=== PATIENT | female | born 1960 | race Native Hawaiian/Other Pacific Islander ===

== ENCOUNTER 2019-05-24 10:09 | Day surgery (SDC) | payer OTHER | END 2019-05-24 13:48 | disposition home or self-care (01) | LOC: OR 10:09 | PROC: 3E0R33Z Introduction of Anti-inflammatory into Spinal Canal, Percutaneous Approach (ICD-10-PCS; principal; 2019-05-24) | PROC: B01BYZZ Fluoroscopy of Spinal Cord using Other Contrast (ICD-10-PCS; 2019-05-24) | DX: M51.16 Intervertebral disc disorders with radiculopathy, lumbar region (principal) | CPT/HCPCS: J1020 ==

== ENCOUNTER 2019-07-26 09:12 | Day surgery (SDC) | payer OTHER | END 2019-07-26 11:05 | disposition home or self-care (01) | LOC: OR 09:12 | PROC: 3E0R33Z Introduction of Anti-inflammatory into Spinal Canal, Percutaneous Approach (ICD-10-PCS; principal; 2019-07-26) | PROC: B01BYZZ Fluoroscopy of Spinal Cord using Other Contrast (ICD-10-PCS; 2019-07-26) | DX: M51.16 Intervertebral disc disorders with radiculopathy, lumbar region (principal) | CPT/HCPCS: J1020 ==

== ENCOUNTER 2020-06-27 15:11 | Outpatient (CLI) | payer OTHER | END 2020-06-27 20:16 | disposition home or self-care (01) | LOC: RESP 15:11 | DX: R06.02 Shortness of breath (principal) ==

== ENCOUNTER 2020-07-09 12:48 | Outpatient (CLI) | payer OTHER | END 2020-07-09 23:28 | disposition home or self-care (01) | LOC: CT 12:48 | DX: F17.210 Nicotine dependence, cigarettes, uncomplicated (principal); Z12.2 Encounter for screening for malignant neoplasm of respiratory organs | CPT/HCPCS: G0297-TC ==

== ENCOUNTER 2020-10-10 16:55 | Emergency (ER) | payer OTHER ==
[~2020-10-10] VITALS: Ht 154.9 cm; Wt 63.5 kg
[2020-10-10 18:01] LABS: PLATELET COUNT 248 K/uL (152-353)
[2020-10-10 18:10] LABS: POTASSIUM 3.5 mmol/L (3.6-5.2)
[2020-10-10 18:44] VITALS: BP 92/69; TEMP 98.9
== END 2020-10-10 18:44 | disposition home or self-care (01) ==
LOC: ED 16:55
PROVIDERS: Family Medicine
DX: R20.2 Paresthesia of skin (principal); E87.6 Hypokalemia; I69.998 Other sequelae following unspecified cerebrovascular disease; F17.210 Nicotine dependence, cigarettes, uncomplicated
CPT/HCPCS: 36415; 80053; 81000; 85027; 99282; 99283